=== PATIENT | female | born 1985 | race African-American/Black ===

== ENCOUNTER 2024-06-10 02:22 | Emergency (ER) | payer MEDICAID ==
[~2024-06-10] VITALS: Ht 167.6 cm; Wt 90.0 kg
[~2024-06-10 02:22] MED LIST: ESCI-7 PO; GABA-529 PO; KEPP500 MT; LAMO25TA9 PO; LORA10TA7 PO
[2024-06-10 02:31] VITALS: O2SAT 100
[2024-06-10] MEDS ORDERED: LEVETIRACETAM 500MG PREMIX 100 ML IV ONE (02:45)
[2024-06-10 03:00] LABS: BASOPHILS % 0.4 % (0.0-2.0); EOSINOPHILS % 0.4 % (0.0-5.0); HEMATOCRIT. 37.1 % (36.0-48.0); HEMOGLOBIN. 12.2 g/dL (12.0-16.0); LYMPHOCYTES % 17.9 % (20.0-50.0); MEAN CORPUSCULAR HEMOGLOBIN 26.3 pg (28.0-32.0); MEAN CORPUSCULAR HGB CONC 32.8 g/dL (31.0-37.0); MEAN CORPUSCULAR VOLUME 80.1 fL (81.0-99.0); MEAN PLATELET VOLUME 6.8 fl (7.4-10.4); MONOCYTES % 7.2 % (2.0-8.0); NEUTROPHILS % 74.1 % (40.0-76.0); PLATELET 478 x1000/uL (130-400); RED BLOOD CELL COUNT 4.64 mill/uL (4.2-5.4); RED CELL DISTRIBUTION WIDTH 14.7 % (11.6-14.6); WHITE BLOOD COUNT 10.7 x1000/uL (4.5-11.0)
[2024-06-10 03:08] LABS: CHLORIDE 102 mEq/L (98-107); POTASSIUM 3.3 mEq/L (3.5-5.1); SODIUM 137 mEq/L (136-145)
[2024-06-10 03:09] LABS: CALCIUM 8.9 mg/dL (8.7-10.4); CARBON DIOXIDE 28 mEq/L (21-32)
[2024-06-10 03:14] LABS: CREATININE 0.8 mg/dL (0.6-1.0); GLUCOSE 121 mg/dL (70-105)
[2024-06-10 03:15] LABS: UREA NITROGEN BLOOD 10 mg/dL (9-23)
[2024-06-10 03:16] LABS: CREATINE KINASE 351 IU/L (34-145)
[2024-06-10 03:38] LABS: HCG SCREEN NEGATIVE
[2024-06-10 03:42] LABS: CARBAMAZEPINE < 0.4 ug/mL (4-12); ETHANOL BLOOD < 10 mg/dL (<10); PHENYTOIN < 2.0 ug/mL (10-20); VALPROIC ACID < 3.0 ug/mL (50-100)
[2024-06-10] MEDS: LEVETIRACETAM 500MG PREMIX 100 ML IV NR (03:47)
[2024-06-10] MEDS: ACETAMINOPHEN 1000MG/100ML 100 ML IV ONE (05:12)
[2024-06-10 05:35] LABS: CLARITY URINE CLEAR (CLEAR); COLOR URINE YELLOW (YELLOW); GLUCOSE URINE NEGATIVE (NEGATIVE); KETONES URINE NEGATIVE (NEGATIVE); LEUKOCYTE ESTERASE URINE NEGATIVE (NEGATIVE); NITRITE URINE NEGATIVE (NEGATIVE); OCCULT BLOOD URINE 2+ (NEGATIVE); PH URINE 7.5 (4.5-8.0); PROTEIN URINE NEGATIVE (NEGATIVE); SPECIFIC GRAVITY URINE 1.012 (1.005-1.030); UROBILINOGEN URINE 0.2 E.U./dL (0.2-1.0)
[2024-06-10 05:49] LABS: *AMPHETAMINES SCREEN URINE NEGATIVE (NEGATIVE); *BENZODIAZEPINES SCREEN URINE NEGATIVE (NEGATIVE)
[2024-06-10 05:50] LABS: *BARBITURATES SCREEN URINE NEGATIVE (NEGATIVE); *COCAINE SCREEN URINE NEGATIVE (NEGATIVE); CANNABINOID URINE SCREEN NEGATIVE (NEGATIVE); ECSTASY MDMA SCREEN URINE NEGATIVE (NEGATIVE); METHADONE URINE SCREEN NEGATIVE (NEGATIVE); OPIATES URINE SCREEN NEGATIVE (NEGATIVE); PHENCYCLIDINE URINE SCREEN NEGATIVE (NEGATIVE)
[2024-06-10 06:25] VITALS: BP 111/80; PULSE 83; RESP 17; TEMP 36.83628
[2024-06-10 06:29] LABS: RBC URINE 0-2 /hpf (0-2); SQUAMOUS EPITHELIAL CELL URINE FEW /lpf (RARE/1+); WBC URINE 0-2 /hpf (0-2)
[2024-06-10 06:31] LABS: BACTERIA URINE NONE SEEN
== END 2024-06-10 07:30 | disposition home or self-care (01) ==
LOC: ER 02:22
DX: G40.909 Epilepsy, unspecified, not intractable, without status epilepticus (principal)
CPT/HCPCS: 80305; 80048; 81003; 80320; 80156; 82550; 80185; 82962; 84703; 83690; 80165; 85025; 36415; 96367; 96365; 99284; J1953; Z7610 ×2; G0480; J0131

== ENCOUNTER 2024-06-18 19:41 | Emergency (ER) | payer MEDICAID ==
[~2024-06-18] VITALS: Ht 167.6 cm; Wt 82.0 kg
[2024-06-18 20:11] VITALS: BP 160/90; PULSE 90; RESP 18; TEMP 98.1; O2SAT 98
== END 2024-06-18 21:32 | disposition left against medical advice (07) ==
LOC: ER 19:41
DX: G40.909 Epilepsy, unspecified, not intractable, without status epilepticus (principal); Z79.899 Other long term (current) drug therapy
CPT/HCPCS: 99283